=== PATIENT | female | born 1980 | race Asian ===

== ENCOUNTER 2018-01-11 16:47 | Emergency (ER) | payer SELFPAY ==
[~2018-01-11] VITALS: Ht 162.6 cm; Wt 68.0 kg
[2018-01-11 17:14] VITALS: BP 117/84
== END 2018-01-12 | disposition left against medical advice (07) ==
LOC: ER 20:45
DX: N64.4 Mastodynia (principal)
CPT/HCPCS: 81025; 99282

== ENCOUNTER 2018-01-18 13:03 | Emergency (ER) | payer SELFPAY ==
[~2018-01-18] VITALS: Ht 162.6 cm; Wt 62.0 kg
[2018-01-18] MEDS ORDERED: CEFTRIAXONE SODIUM 1 G/VIAL IM ONE (14:45)
[2018-01-18] MEDS ORDERED: KETOROLAC 30MG/ML VIAL IV ONE (14:45)
[2018-01-18] MEDS ORDERED: LIDOCAINE HCL/EPINEPHRINE 1%-EPI 1:100,000 20 ML VIAL INFIL ONE (14:45)
[2018-01-18] MEDS ORDERED: CEFTRIAXONE SODIUM 1 G/VIAL IV ONE (15:00)
[2018-01-18] MEDS ORDERED: CEFTRIAXONE 1 G PREMIX 50 ML IV SCH (15:15)
[2018-01-18] MEDS ORDERED: HYDROCODONE/ACETAMINOPHEN 5/325MG TABLET PO ONE (16:30)
[2018-01-18 17:10] VITALS: BP 118/70
== END 2018-01-18 17:12 | disposition home or self-care (01) ==
LOC: ER 14:13
DX: N61.1 Abscess of the breast and nipple (principal); R03.0 Elevated blood-pressure reading, without diagnosis of hypertension
CPT/HCPCS: 96374; 99284; J0696; J1885; J3490; Z7610

== ENCOUNTER 2018-01-20 13:48 | Emergency (ER) | payer SELFPAY ==
[~2018-01-20] VITALS: Ht 162.6 cm; Wt 64.0 kg
[2018-01-20 13:55] VITALS: BP 104/76
== END 2018-01-20 15:06 | disposition home or self-care (01) ==
LOC: ER 13:48
DX: Z48.00 Encounter for change or removal of nonsurgical wound dressing (principal)
CPT/HCPCS: 99281; X7700; Z7610